=== PATIENT | male | born 1960 | race Caucasian/White ===

== ENCOUNTER 2017-01-05 21:48 | Emergency (ER) | payer SELFPAY ==
[~2017-01-05] VITALS: Ht 175.3 cm; Wt 109.0 kg
[2017-01-05 23:10] VITALS: BP 119/74
[2017-01-05] MEDS: HYDROCODONE/ACETAMINOPHEN 5-325 MG TABLET PO ONE (23:18)
[2017-01-05] MEDS: IBUPROFEN 800 MG TABLET PO ONE (23:18)
== END 2017-01-05 23:38 | disposition home or self-care (01) ==
LOC: EMS 21:50
DX: S43.492A Other sprain of left shoulder joint, initial encounter (principal); W20.8XXA Other cause of strike by thrown, projected or falling object, initial encounter; Y93.89 Activity, other specified; Y92.89 Other specified places as the place of occurrence of the external cause; Y99.8 Other external cause status
CPT/HCPCS: 99284

== ENCOUNTER 2017-02-08 23:18 | Emergency (ER) | payer SELFPAY ==
[~2017-02-08] VITALS: Ht 175.3 cm; Wt 90.0 kg
[2017-02-09] MEDS ORDERED: LORazepam 2 MG/ML VIAL IM ONE (01:00)
[2017-02-09] MEDS ORDERED: KETOROLAC TROMETHAMINE 30 MG/ML VIAL IM ONE (01:00)
[2017-02-09 02:05] VITALS: BP 117/70
== END 2017-02-09 02:52 | disposition home or self-care (01) ==
LOC: EMS 23:23
DX: S39.012A Strain of muscle, fascia and tendon of lower back, initial encounter (principal); Z88.0 Allergy status to penicillin; X58.XXXA Exposure to other specified factors, initial encounter; Y93.89 Activity, other specified; Y92.89 Other specified places as the place of occurrence of the external cause; Y99.8 Other external cause status
CPT/HCPCS: 96372; 99284; J1885; J2060